=== PATIENT | female | born 1940 | race Caucasian/White ===

== ENCOUNTER → 2017-11-11 | Outpatient (CLI) | payer MEDICARE, OTHER ==
[~2017-11-11] MED LIST: IOPAMIDOL 370 MG/ML 200 ML INFUS..BTL INJ ONE; SODIUM CHLORIDE 0.9% 50ML 50 ML ONE
[2017-11-11 17:44] LABS: BLOOD UREA NITROGEN 19 mg/dL (7-26); BUN/CREATININE RATIO 26 (6-25); CREATININE, SERUM 0.74 mg/dL (0.57-1.11); EST GLOMERULAR FILTRATION RATE > 60 ML/MIN (60-)
--- NOTE | 2017-11-11 18:40 | Diagnostic Imaging Report ---
PROCEDURE:CT CHEST WITH CONTRAST COMPARISON:None. INDICATIONS:PAIN UNDER RIGHT SHOULDER TECHNIQUE: Axial CT images of the chest were obtained after the intravenous administration of 100 cc of nonionic contrast. Coronal and sagittal reformations were made available for review. RADIATION DOSE: Total DLP: 477.4 mGy*cm Estimated effective dose: (DLP x 0.014 x size factor) mSv FINDINGS: Lymph nodes: No enlarged axillary, supraclavicular, mediastinal, or hilar lymph nodes. Thyroid/Base of neck: Unremarkable. Heart \T\ Mediastinum:The heart is top normal in size. Descending aorta is ectatic and measures 3.7 x 3.9 cm in diameter. Main pulmonary artery measures 2.5 cm. There is a small amount of fluid in the superior pericardial recess. The esophagus is normal. Lungs: Mild hyperinflation with bilateral apical pleural-parenchymal thickening. No consolidation. No evidence of mass. Pleura:No pleural effusion or pneumothorax. There is mild eventration of the right diaphragm. Upper abdomen:There are multiple cysts throughout the liver. The liver is mildly decreased in attenuation suggestive of steatosis. The gallbladder is distended and contains 2 calcified gallstones each measuring 10 mm. Visualized portions of the pancreas spleen, adrenal glands are unremarkable. A cyst in the upper pole of the right kidney measures 16 mm. Musculoskeletal: No compression deformities or lytic/blastic lesions. Visualized portions of the shoulders are unremarkable. CONCLUSION: 1. Mild pulmonary hyperinflation suggestive of small airways disease. No pulmonary mass or infiltrate. 2. Mild cardiomegaly. Ascending aortic aneurysm. 3. Scattered hepatic cysts. Mild hepatic steatosis. Cholelithiasis. Dictated by: Rene Rodriguez M.D. on 11/11/2017 at 18:39 Electronically approved by: Rene Rodriguez M.D. on 11/11/2017 at 18:39
== END ==
LOC: CT 16:48
DX: M25.511 Pain in right shoulder (principal); M54.9 Dorsalgia, unspecified; I51.7 Cardiomegaly; I71.2 Thoracic aortic aneurysm, without rupture; K76.89 Other specified diseases of liver
CPT/HCPCS: 36415; 71260; 82565; 84520; Q9967